=== PATIENT | male | born 1950 | race Caucasian/White ===

== ENCOUNTER 2018-09-08 01:51 | Outpatient (CLI) | payer MEDICARE, MEDICAID, SELFPAY ==
[2018-09-08 11:56] LABS: Anion Gap 11.2 mmol/L (3-11); BUN 16 mg/dL (7-18); CO2 24.8 mmol/L (21.0-32.0); CREATININE 1.22 mg/dL (0.70-1.30); Calcium 8.6 mg/dL (8.5-10.1); Calculated LDL 105 mg/dL; Chloride 107 mmol/L (98-107); Cholesterol 198 mg/dL (50-200); Estimated GFR 59.43 (mL/min/1.73m2); Glucose 88 mg/dL (70-100); HDL Cholesterol 88 mg/dL (40-60); Potassium 4.3 mmol/L (3.5-5.1); Sodium 143 mmol/L (136-145); TSH 0.58 uIU/mL (0.358-3.74); Triglyceride 29 mg/dL (30-150)
== END 2018-09-08 02:11 ==
PROVIDERS: PCP Family Medicine; Visit Provider Family Medicine
DX: F17.200 Nicotine dependence, unspecified, uncomplicated (principal); E03.9 Hypothyroidism, unspecified
CPT/HCPCS: 36415; 80048; 80061; 83721; 84443

== ENCOUNTER → 2019-05-02 13:43 | Outpatient (BNVA) | payer MEDICARE, MEDICAID, SELFPAY | PROVIDERS: PCP Family Medicine; Referring Provider Family Medicine; Visit Provider Student in an Organized Health Care Education/Training Program | DX: M72.0 Palmar fascial fibromatosis [Dupuytren] (principal) | CPT/HCPCS: 99203 ==

== ENCOUNTER 2019-09-15 01:55 | Outpatient (CLI) | payer MEDICARE, MEDICAID, SELFPAY ==
[2019-09-15 13:17] LABS: Anion Gap 9.3 mmol/L (3-11); BUN 21 mg/dL (7-18); CO2 26.7 mmol/L (21.0-32.0); CREATININE 1.41 mg/dL (0.70-1.30); Calcium 8.9 mg/dL (8.5-10.1); Chloride 105 mmol/L (98-107); Estimated GFR 50.14 (mL/min/1.73m2); Glucose 82 mg/dL (74-106); Potassium 4.2 mmol/L (3.5-5.1); Sodium 141 mmol/L (136-145); TSH 1.11 uIU/mL (0.36-3.74)
== END 2019-09-15 02:15 ==
PROVIDERS: PCP Family Medicine; Visit Provider Family Medicine
DX: E03.9 Hypothyroidism, unspecified (principal); I10 Essential (primary) hypertension
CPT/HCPCS: 36415; 80048; 84443

== ENCOUNTER 2019-12-20 02:44 | Outpatient (CLI) | payer MEDICARE, MEDICAID, SELFPAY ==
[2019-12-20 13:41] LABS: Anion Gap 7.3 mmol/L (3-11); BUN 23 mg/dL (7-18); CO2 25.7 mmol/L (21.0-32.0); CREATININE 1.53 mg/dL (0.70-1.30); Calcium 8.6 mg/dL (8.5-10.1); Chloride 103 mmol/L (98-107); Estimated GFR 45.63 (mL/min/1.73m2); Glucose 84 mg/dL (74-106); Potassium 4.1 mmol/L (3.5-5.1); Sodium 136 mmol/L (136-145); TSH 1.04 uIU/mL (0.36-3.74)
== END 2019-12-20 03:04 ==
PROVIDERS: Family Medicine; PCP Nurse Practitioner; Visit Provider Nurse Practitioner
DX: E03.9 Hypothyroidism, unspecified (principal); I10 Essential (primary) hypertension
CPT/HCPCS: 80048; 82565; 84132; 84443

== ENCOUNTER 2020-09-26 03:13 | Outpatient (CLI) | payer OTHER, MEDICAID, SELFPAY ==
[2020-09-26 13:24] LABS: CREATININE 1.6 mg/dL (0.70-1.30); TSH (W/Ref FT4) 0.13 uIU/mL (0.36-3.74)
[2020-09-26 13:55] LABS: FREE T4 1.42 ng/dL (0.76-1.46)
== END 2020-09-26 03:14 | disposition home or self-care (01) ==
PROVIDERS: PCP Nurse Practitioner; Visit Provider Nurse Practitioner
DX: I10 Essential (primary) hypertension (principal); E03.9 Hypothyroidism, unspecified
CPT/HCPCS: 36415; 82565; 84439; 84443

== ENCOUNTER 2020-11-07 02:25 | Outpatient (CLI) | payer OTHER, MEDICAID, SELFPAY ==
[2020-11-07 13:02] LABS: CREATININE 1.8 mg/dL (0.70-1.30); Estimated GFR 37.71 (mL/min/1.73m2); Potassium 4.5 mmol/L (3.5-5.1); TSH 0.27 uIU/mL (0.36-3.74)
== END 2020-11-07 02:26 | disposition home or self-care (01) ==
LOC: LOS 02:26
PROVIDERS: PCP Nurse Practitioner; Visit Provider Nurse Practitioner
DX: I10 Essential (primary) hypertension; E03.9 Hypothyroidism, unspecified
CPT/HCPCS: 36415; 82565; 84132; 84443

== ENCOUNTER 2020-12-04 02:24 | Outpatient (CLI) | payer OTHER, MEDICAID, SELFPAY ==
[2020-12-04 12:50] LABS: TSH 1.77 uIU/mL (0.36-3.74)
== END 2020-12-04 02:25 | disposition home or self-care (01) ==
LOC: LOS 02:24
PROVIDERS: PCP Nurse Practitioner; Visit Provider Nurse Practitioner
DX: E03.9 Hypothyroidism, unspecified (principal)
CPT/HCPCS: 36415; 84443

== ENCOUNTER 2021-10-07 02:48 | Outpatient (CLI) | payer OTHER, MEDICAID, SELFPAY ==
[2021-10-07 12:55] LABS: BUN 28 mg/dL (7-18); CREATININE 1.9 mg/dL (0.70-1.30); Calcium 8.8 mg/dL (8.5-10.1); Chloride 105 mmol/L (98-107); Estimated GFR 35.32 (mL/min/1.73m2); Glucose 83 mg/dL (74-106); Potassium 4.4 mmol/L (3.5-5.1); Sodium 139 mmol/L (136-145); TSH (W/Ref FT4) 1.67 uIU/mL (0.36-3.74)
[2021-10-07 12:58] LABS: Hemoglobin A1C 5.4 % (<5.7)
== END 2021-10-07 02:49 | disposition home or self-care (01) ==
LOC: LOS 02:48
PROVIDERS: PCP Nurse Practitioner; Visit Provider Nurse Practitioner
DX: I10 Essential (primary) hypertension (principal); E03.9 Hypothyroidism, unspecified; R79.89 Other specified abnormal findings of blood chemistry
CPT/HCPCS: 36415; 80048; 83036; 84443

== ENCOUNTER 2021-10-10 03:47 | Outpatient (CLI) | payer OTHER, MEDICAID, SELFPAY ==
[2021-10-10 12:43] LABS: Abs Immature Grans 0.02 10^3/uL (0.0-0.06); Absolute Basophil Count 0.04 10^3/uL (0.0-0.2); Absolute Eosinophil Count 0.19 10^3/uL (0.0-0.7); Absolute Lymphocyte Count 1.41 10^3/uL (1.2-3.4); Absolute Monocyte Count 0.35 10^3/uL (0.1-0.8); Absolute Neutrophil Count 2.62 10^3/uL (1.2-6.7); Basophils % 0.9; Eosinophils % 4.1; HCT 35.5 % (40.0-50.0); HGB 11.5 g/dL (13.5-17.5); Immature Grans % 0.4; Lymphocytes % 30.5; MCH 29.9 pg (27.0-33.0); MCHC 32.4 % (32.0-36.0); MCV 92 fL (80-95); Monocytes % 7.6; Neutrophils % 56.5; RBC 3.85 10^6/uL (4.36-5.78); RDW 14.7 % (11.8-14.1); RDW-SD 49.9 fL
[2021-10-10 12:55] LABS: Bilirubin Negative (Negative); Blood Negative (Negative); Clarity Clear (Clear); Glucose Negative (Negative); Ketones Negative (Negative); Leukocyte Esterase Negative (Negative); Nitrite Negative (Negative); Specific Gravity >= 1.030 (1.005-1.025); Urobilinogen 0.2 EU/dL (Up TO 0.2)
[2021-10-10 13:03] LABS: ALT 27 U/L (16-63); AST 24 U/L (15-37); Albumin 3.7 g/dL (3.4-5.0); Alkaline Phosphatase 95 U/L (46-116); Anion Gap 9.9 mmol/L (3-11); BUN 22 mg/dL (7-18); Bilirubin, Total 0.2 mg/dL (0.2-1.0); CO2 25.1 mmol/L (21.0-32.0); CREATININE 1.9 mg/dL (0.70-1.30); Calcium 8.7 mg/dL (8.5-10.1); Chloride 106 mmol/L (98-107); Estimated GFR 35.32 (mL/min/1.73m2); Glucose 68 mg/dL (74-106); Potassium 4.3 mmol/L (3.5-5.1); Sodium 141 mmol/L (136-145); Total Protein 7.6 g/dL (6.4-8.2)
[2021-10-10 13:11] LABS: WBC 4.63 10^3/uL (4.4-10.8)
[2021-10-10 13:59] LABS: COMMENT (LAB VIEW ONLY) 181.33 mg/dL; Prot/Crea Ur Ratio 0.09
[2021-10-11 10:02] LABS: Kappa Free Light Chain 4.67 mg/dL (0.33-1.94); Lambda Free Light Chain 2.83 mg/dL (0.57-2.63)
[2021-10-11 14:01] LABS: Albumin 57.6 % (55.8-66.1); Albumin g/dL 3.9 g/dL (3.6-5.2); Total Protein 6.7 g/dL (6.3-8.2)
[2021-10-11 14:48] LABS: Albumin, Urine % 7.6 %; Albumin, Urine mg/dL <0 mg/dL; Globulins, Urine % 92.4 %; Globulins, Urine mg/dL <5 mg/dL; Immunotyping, Urine (See Note); Total Protein Urine <5 mg/dL (See Note)
== END 2021-10-10 03:48 | disposition home or self-care (01) ==
LOC: LOS 03:47
PROVIDERS: PCP Nurse Practitioner; Visit Provider Family Medicine
DX: N18.32 Chronic kidney disease, stage 3b (principal); R30.0 Dysuria
CPT/HCPCS: 36415; 80053; 84156; 84166; 86335; 81003; 82565; 83883; 84165; 85025

== ENCOUNTER → 2021-12-06 00:57 | Outpatient (CLI) | payer OTHER, MEDICAID, SELFPAY ==
--- NOTE | 2021-12-06 07:15 | DI.US_ITS ---
Exam(s) US RENAL EXAM: US RENAL CLINICAL HISTORY: CKD, unexplained. N18.32 KIDNEY DISEASE. TECHNIQUE: Reich scale, color and spectral Doppler were used. COMPARISON: No exams were available for comparison FINDINGS: Renal size in cm: Right: 10. Left: 8.7. Echogenicity: Normal. Hydronephrosis: No. Cyst or mass: No. Nephrolithiasis: No. Other findings: None. Bladder:Limited evaluation due to decreased prevoid volume. No gross abnormalities identified. Ureteral jets: Right: Visualized and unremarkable. Left: Visualized and unremarkable. Prevoid vol:81 cc Postvoid vol:2 cc Prostate: 13.3 cc Renal color flow: Symmetric and within normal limits. IMPRESSION: Unremarkable examination. DATA REPOSITORY:
== END ==
PROVIDERS: PCP Nurse Practitioner; Visit Provider Family Medicine
DX: N18.32 Chronic kidney disease, stage 3b (principal)
CPT/HCPCS: 76770

== ENCOUNTER 2022-04-08 01:54 | Outpatient (CLI) | payer OTHER, MEDICAID, SELFPAY ==
[2022-04-08 12:29] LABS: Abs Immature Grans 0.02 10^3/uL (0.0-0.06); Absolute Basophil Count 0.05 10^3/uL (0.0-0.2); Absolute Eosinophil Count 0.23 10^3/uL (0.0-0.7); Absolute Lymphocyte Count 1.25 10^3/uL (1.2-3.4); Absolute Neutrophil Count 4.14 10^3/uL (1.2-6.7); Basophils % 0.8; Eosinophils % 3.8; HCT 34.9 % (40.0-50.0); HGB 11.5 g/dL (13.5-17.5); Immature Grans % 0.3; Lymphocytes % 20.5; MCH 28.7 pg (27.0-33.0); MCV 87 fL (80-95); MPV 10.6 fL (8.0-11.0); Monocytes % 6.6; Platelet Count 317 10^3/uL (130-400); RBC 4.01 10^6/uL (4.36-5.78); RDW 15.3 % (11.8-14.1); RDW-SD 48.9 fL; WBC 6.09 10^3/uL (4.4-10.8)
[2022-04-08 12:50] LABS: ALT 24 U/L (16-63); AST 28 U/L (15-37); Albumin 3.9 g/dL (3.4-5.0); Alkaline Phosphatase 114 U/L (46-116); BUN 20 mg/dL (7-18); Bilirubin, Total 0.3 mg/dL (0.2-1.0); CREATININE 1.7 mg/dL (0.70-1.30); Calcium 9.1 mg/dL (8.5-10.1); Chloride 105 mmol/L (98-107); Glucose 111 mg/dL (74-106); PHOSPHORUS 3.1 mg/dL (2.6-4.7); Potassium 3.6 mmol/L (3.5-5.1); Sodium 140 mmol/L (136-145); Total Protein 7.6 g/dL (6.4-8.2)
[2022-04-08 17:58] LABS: Parathyroid Hormone,Intact 88 pg/mL (19-88)
[2022-04-08 18:28] LABS: HIV-1/2 Ag & Ab Screen Negative (Negative)
[2022-04-08 22:00] LABS: Hepatitis C Ab w Rflx HCV PCR Negative (Negative)
[2022-04-09 09:27] LABS: Kappa Free Light Chain 4.53 mg/dL (0.33-1.94); Lambda Free Light Chain 2.98 mg/dL (0.57-2.63)
== END 2022-04-08 01:55 | disposition home or self-care (01) ==
LOC: LOS 01:54
PROVIDERS: PCP Nurse Practitioner Family; Visit Provider Family Medicine
DX: N18.32 Chronic kidney disease, stage 3b (principal); I10 Essential (primary) hypertension; E03.9 Hypothyroidism, unspecified; E29.1 Testicular hypofunction; Z11.4 Encounter for screening for human immunodeficiency virus [HIV]; Z11.59 Encounter for screening for other viral diseases
CPT/HCPCS: 36415; 80053; 86803; 87389; 83883; 83970; 84100; 85025

== ENCOUNTER 2022-10-08 03:01 | Outpatient (CLI) | payer OTHER, MEDICAID, SELFPAY ==
[2022-10-08 12:13] LABS: HCT 37.2 % (40.0-50.0); HGB 12.1 g/dL (13.5-17.5); MCH 28.3 pg (27.0-33.0); MCHC 32.5 % (32.0-36.0); MCV 87 fL (80-95); MPV 9.6 fL (8.0-11.0); Platelet Count 367 10^3/uL (130-400); RBC 4.28 10^6/uL (4.36-5.78); RDW 16.8 % (11.8-14.1); WBC 5.03 10^3/uL (4.4-10.8)
[2022-10-08 12:37] LABS: Anion Gap 9.4 mmol/L (3-11); BUN 14 mg/dL (7-18); CO2 26.6 mmol/L (21.0-32.0); CREATININE 1.6 mg/dL (0.70-1.30); Calcium 8.7 mg/dL (8.5-10.1); Calculated LDL 87 mg/dL (<100); Chloride 107 mmol/L (98-107); Cholesterol 197 mg/dL (<200); Estimated GFR 46.06 (mL/min/1.73m2); Glucose 92 mg/dL (74-106); HDL Cholesterol 104 mg/dL (40-60); Potassium 4.5 mmol/L (3.5-5.1); Sodium 143 mmol/L (136-145); TSH 0.82 uIU/mL (0.36-3.74); Triglyceride 31 mg/dL (<150)
== END 2022-10-08 03:02 | disposition home or self-care (01) ==
LOC: LOS 03:01
PROVIDERS: PCP Nurse Practitioner Family; Visit Provider Nurse Practitioner Family
DX: I10 Essential (primary) hypertension (principal); E03.9 Hypothyroidism, unspecified; F17.210 Nicotine dependence, cigarettes, uncomplicated; F10.21 Alcohol dependence, in remission; N18.32 Chronic kidney disease, stage 3b
CPT/HCPCS: 36415; 80048; 80061; 85027; 83036; 84443

== ENCOUNTER 2023-04-07 03:19 | Outpatient (CLI) | payer OTHER, MEDICAID, SELFPAY ==
[2023-04-07 12:50] LABS: HCT 36.6 % (40.0-50.0); HGB 12.4 g/dL (13.5-17.5); MCHC 33.9 % (32.0-36.0); MCV 92 fL (80-95); MPV 9.9 fL (8.0-11.0); Platelet Count 344 10^3/uL (130-400); RDW-SD 50.6 fL; WBC 5.81 10^3/uL (4.4-10.8)
[2023-04-07 13:07] LABS: Anion Gap 12.1 mmol/L (3-11); BUN 19 mg/dL (7-18); CO2 23.9 mmol/L (21.0-32.0); CREATININE 1.6 mg/dL (0.70-1.30); Calcium 8.9 mg/dL (8.5-10.1); Chloride 106 mmol/L (98-107); Estimated GFR 46.06 (mL/min/1.73m2); Glucose 90 mg/dL (74-106); Potassium 3.9 mmol/L (3.5-5.1); Sodium 142 mmol/L (136-145); TSH (W/Ref FT4) 0.45 uIU/mL (0.36-3.74)
== END 2023-04-07 03:20 | disposition home or self-care (01) ==
LOC: LOS 03:19
PROVIDERS: PCP Nurse Practitioner Family; Visit Provider Nurse Practitioner Family
DX: I10 Essential (primary) hypertension (principal); E03.9 Hypothyroidism, unspecified; N18.32 Chronic kidney disease, stage 3b
CPT/HCPCS: 36415; 80048; 85027; 84443

== ENCOUNTER 2023-10-07 03:22 | Outpatient (CLI) | payer OTHER, MEDICAID, SELFPAY ==
[2023-10-07 12:25] LABS: Anion Gap 8.6 mmol/L (3-11); BUN 13 mg/dL (7-18); CO2 27.4 mmol/L (21.0-32.0); CREATININE 1.7 mg/dL (0.70-1.30); Calcium 9.1 mg/dL (8.5-10.1); Chloride 105 mmol/L (98-107); Estimated GFR 42.57 (mL/min/1.73m2); Glucose 85 mg/dL (74-106); Potassium 4.1 mmol/L (3.5-5.1); Sodium 141 mmol/L (136-145)
== END 2023-10-07 03:23 | disposition home or self-care (01) ==
LOC: LOS 03:22
PROVIDERS: PCP Nurse Practitioner Family; Visit Provider Nurse Practitioner Family
DX: N18.32 Chronic kidney disease, stage 3b (principal)
CPT/HCPCS: 36415; 80048

== ENCOUNTER 2024-04-20 03:20 | Outpatient (CLI) | payer MEDICARE, MEDICAID, SELFPAY ==
[2024-04-20 12:24] LABS: HCT 38.1 % (40.0-50.0); HGB 12.6 g/dL (13.5-17.5); MCH 30.8 pg (27.0-33.0); MCHC 33.1 % (32.0-36.0); MCV 93 fL (80-95); MPV 9.9 fL (8.0-11.0); Platelet Count 359 10^3/uL (130-400); RBC 4.09 10^6/uL (4.36-5.78); RDW 13.5 % (11.8-14.1); RDW-SD 46.2 fL; WBC 4.51 10^3/uL (4.4-10.8)
[2024-04-20 12:44] LABS: ALT 21 U/L (16-63); AST 20 U/L (15-37); Albumin 3.9 g/dL (3.4-5.0); Alkaline Phosphatase 106 U/L (46-116); BUN 29 mg/dL (7-18); Bilirubin, Total 0.32 mg/dL (0.2-1.0); CREATININE 1.9 mg/dL (0.70-1.30); Calcium 9.3 mg/dL (8.5-10.1); Calculated LDL 103 mg/dL (<100); Chloride 107 mmol/L (98-107); Cholesterol 200 mg/dL (<200); Estimated GFR 37.25 (mL/min/1.73m2); Glucose 90 mg/dL (74-106); HDL Cholesterol 90 mg/dL (40-60); Potassium 3.7 mmol/L (3.5-5.1); Sodium 142 mmol/L (136-145); TSH (W/Ref FT4) 0.46 uIU/mL (0.36-3.74); Total Protein 7.2 g/dL (6.4-8.2); Triglyceride 37 mg/dL (<150)
== END 2024-04-20 03:21 | disposition home or self-care (01) ==
LOC: LOS 03:20
PROVIDERS: PCP Nurse Practitioner Family; Visit Provider Nurse Practitioner Family
DX: Z00.00 Encounter for general adult medical examination without abnormal findings (principal); I10 Essential (primary) hypertension; E03.9 Hypothyroidism, unspecified; F10.21 Alcohol dependence, in remission; N18.32 Chronic kidney disease, stage 3b
CPT/HCPCS: 36415; 80053; 80061; 85027; 84443